=== PATIENT | female | born 1965 | race Asian ===

== ENCOUNTER 2020-08-25 03:10 | Emergency (ER) | payer SELFPAY ==
[2020-08-25 03:23] VITALS: BMI 27.4
[2020-08-25 05:21] LABS: BASO % 0.2 % (0-2.0); EOS % 0.4 % (0-4.5); HEMATOCRIT 33.8 % (32.4-45.2); HEMOGLOBIN 11.4 GM/dL (10.7-15.3); LYMPH % 10.4 % (8-40); MCHC 33.7 g/dl (32.0-36.0); MEAN CELL VOLUME 83.1 fl (80-96); MEAN PLT VOLUME 7.3 fl (7.5-11.1); MONO % 4.1 % (3.8-10.2); NEUT % 84.9 % (42.8-82.8); PLATELET COUNT 245 K/MM3 (134-434); RBC 4.07 M/mm3 (3.60-5.2); RDW 13.9 % (11.6-15.6); WHITE BLOOD COUNT 7.3 K/mm3 (4.0-10.0)
[2020-08-25 05:41] LABS: CHLORIDE 109 mmol/L (98-107); POTASSIUM 3.8 mmol/L (3.5-5.1); SODIUM 142 mmol/L (136-145)
[2020-08-25 05:43] LABS: ALBUMIN 3.5 g/dl (3.4-5.0); ANION GAP 5 MMOL/L (8-16); BLOOD UREA NITROGEN 11.8 mg/dL (7-18); CALCIUM 8.3 mg/dL (8.5-10.1); CO2 27 mmol/L (21-32)
[2020-08-25 05:44] LABS: GLUCOSE,RANDOM 126 mg/dL (74-106)
[2020-08-25 05:46] LABS: SGOT/AST 11 U/L (15-37); SGPT/ALT 21 U/L (13-61)
[2020-08-25 05:47] LABS: CREATININE 0.8 mg/dL (0.55-1.3)
[2020-08-25 05:48] LABS: BILIRUBIN,TOTAL 0.5 mg/dL (0.2-1); TOT PROT 6.7 g/dl (6.4-8.2)
[2020-08-25 05:49] LABS: ALK PHOS 61 U/L (45-117)
[2020-08-25 07:26] VITALS: BP 106/78; PULSE 74; TEMP 98.4
== END 2020-08-25 07:26 | disposition home or self-care (01) ==
LOC: JER 03:10 → EDBD 03:10 → JER 07:26
DX: R07.9 Chest pain, unspecified (principal)
CPT/HCPCS: 36415; 71046-TC-FY; 80053; 82550; 84484; 85025; 99285-25